=== PATIENT | male | born 1985 | race Caucasian/White ===

== ENCOUNTER → 2022-05-22 10:56 | Outpatient (CLI) | payer OTHER, SELFPAY ==
--- NOTE | ~2022-05-22 | XR_ITS ---
XR knee RT 3V DATE: 05/22/2022 12:01 INDICATION: Medial collateral ligament sprain TECHNIQUE: [place] and standing AP and lateral views COMPARISON: None FINDINGS: No fracture or dislocation or joint effusion. No periosteal reaction or bone destruction. N o radiopaque interarticular loose body or chondral calcinosis. Joint spaces are preserved. IMPRESSION: Negative Reviewed, dictated and finalized at location B. IMPRESSION: Negative
== END ==
PROVIDERS: PCP Family Medicine; Visit Provider Family Medicine
DX: S83.411A Sprain of medial collateral ligament of right knee, initial encounter (principal); X58.XXXA Exposure to other specified factors, initial encounter
CPT/HCPCS: 73562

== ENCOUNTER → 2022-06-29 07:04 | Outpatient (CLI) | payer OTHER, SELFPAY ==
--- NOTE | ~2022-06-29 | MR_ITS ---
EXAMINATION: MR knee RT wo con DATE: 06/29/2022 07:38 INDICATION: Right knee injury. TECHNIQUE: Magnetic resonance imaging (MRI) of the right knee was performed without intravenous contr ast. Sequences included axial PD-weighted FS FSE, coronal PD-weighted FSE and PD-weighted FS FSE, sag ittal PD-weighted FSE, and sagittal T2-weighted FS FSE. COMPARISON: Right knee radiographs 05/22/2022 FINDINGS: Medial compartment: Medial meniscus is normal. There is cartilage surface irregularity of tibial condyle. There is deep p artial thickness cartilage loss of femoral condyle involving the central articular surface. Lateral compartment: Lateral meniscus is normal. There is cartilage surface irregularity of tibial condyle and femoral con dyle. Patellofemoral compartment: There is deep partial thickness cartilage loss of patellar medial facet with minimal subchondral nicci a-like marrow signal intensity. Trochlear cartilage is normal. Ligaments and tendons: The anterior and posterior cruciate ligaments are normal. There is fluid tracking along medial collat eral ligament. Lateral collateral ligament complex are normal. There is mild patellar tendinopathy. Fluid: There is a small knee joint effusion. There is mild prepatellar bursitis. IMPRESSION: 1. Moderate chondrosis of medial and patellofemoral compartments and mild chondrosis of lateral marce rtment. 2. Small knee joint effusion. Reviewed, dictated and finalized at location A. IMPRESSION: 1. Moderate chondrosis of medial and patellofemoral compartments and mild chond rosis of lateral compartment. 2. Small knee joint effusion.
== END ==
PROVIDERS: PCP Family Medicine
DX: S89.91XA Unspecified injury of right lower leg, initial encounter (principal); X58.XXXA Exposure to other specified factors, initial encounter; M25.461 Effusion, right knee
CPT/HCPCS: 73721

== ENCOUNTER 2023-11-12 15:22 | Outpatient (CLI) | payer BC, SELFPAY ==
--- NOTE | ~2023-11-12 | XR_ITS ---
EXAMINATION: XR chest 2V DATE: 11/12/2023 15:33 INDICATION: Shortness of breath TECHNIQUE: PA and lateral views of the chest were obtained. COMPARISON: Chest radiograph dated 03/17/2017 FINDINGS: The lungs remain clear with no focal airspace opacities, pulmonary edema, pleural effusion or pneumot horax. The cardiomediastinal silhouette is normal. Mild to moderate thoracic spondylosis. IMPRESSION: 1. No acute cardiopulmonary disease. Reviewed, dictated and finalized at location B.
== END 2023-11-12 15:23 ==
LOC: MICIMG 15:24
PROVIDERS: PCP Family Medicine; Visit Provider Family Medicine
DX: R06.02 Shortness of breath (principal); R05.9 Cough, unspecified
CPT/HCPCS: 71046

== ENCOUNTER 2024-09-19 10:07 | Outpatient (CLI) | payer BC, SELFPAY ==
--- NOTE | ~2024-09-19 | XR_ITS ---
EXAMINATION: XR chest 2V 09/19/2024 10:33 INDICATION: Abnormal lung sounds PROCEDURE: 2 view chest COMPARISON: 11/12/2023 FINDINGS: The lungs are clear. The cardiomediastinal silhouette is within normal limits. There are no pleural effusions. There is no pneumothorax suspected. IMPRESSION: 1: NO ACUTE CARDIOPULMONARY DISEASE. Reviewed, dictated and finalized at location A. 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
== END 2024-09-19 10:08 | disposition home or self-care (01) ==
PROVIDERS: PCP Family Medicine; Visit Provider Pediatrics
DX: J10.1 Influenza due to other identified influenza virus with other respiratory manifestations (principal)
CPT/HCPCS: 71046

== ENCOUNTER 2024-11-24 11:01 | Outpatient (CLI) | payer BC, SELFPAY ==
--- NOTE | ~2024-11-24 | CT_ITS ---
EXAMINATION: CT facial bones w con DATE: 11/24/2024 12:16 INDICATION: Jaw pain. TECHNIQUE: Computed tomography (CT) of the facial bones and maxillofacial region was performed with 7 5 mL Omnipaque 350 intravenous contrast. Automated exposure control and iterative reconstruction tech [employer] were employed. The dose-length product was 604.43 mGy-cm. COMPARISON: None. FINDINGS: There are no pathologically enlarged lymph nodes. There is mild mucosal thickening in the p aranasal sinuses. There is a small left mastoid effusion. The parotid glands are normal. The temporom andibular joints are normal. There is a carious lesion of tooth 8. There is moderate cervical spondyl osis. IMPRESSION: 1. No specific etiology for the patient's symptoms. Reviewed, dictated and finalized at location A.
--- OUTSIDE RECORDS SUMMARY | 2024-11-24 12:06 | XMS_ITS | Encounter Summary ---
Author Name [facility] [place] [facility] [place] Address [address] [place] [address] Care Team Providers Care Telephone Clerks Supervisor Name Role Phone TASNEEM CARVAJAL Primary Care Provider UnavailALFREDO Grace Unavailable Unavailable Insurance Providers: All historical and current Section Date Range: From patient's date of to the date document was created. This section includes the names of all active insurance providers for the patient. Insurance Provider Type of Coverage Plan Name Start of Policy Coverage End of Policy Coverage Group Number Member ID Insurance Provider's Telephone Number Policy Martinez's Name Patient's Relationship to Policy Martinez [place] PREFERRED PROVIDER ORGANIZAT ION (PPO) [facility] Jan 28, 2023 [id number] [phone] CAMILA PEREZ PATIENT [place] PREFERRED PROVIDER ORGANIZAT ION (PPO) [facility] PAINT ERS Jan 28, 2023 [id number] [phone] CAMILA PEREZ PATIENT [place] PREFERRED PROVIDER ORGANIZAT ION (PPO) [facility] PAINT Jan 28, 2023 [id number] [phone] [place] CAMILA PATIENT [place] PREFERRED PROVIDER [place]IZ[place] Jan 28, 2023 [id number] [phone] CAMILA PEREZ PATIENT [employer]-ARGUS PRESCRIPT ION RX PLAN Jan 28, 2023 ISP [id number] [phone] CAMILA PEREZ PATIENT Selected Encounter This section includes the information on record at [place] for the Encounter. Date/Time Encounter Type Encounter Description Reason Pro vider Source Jul 21, 2024 03:30 PM Outpatient Encounter ADMIN PAT ACTIVTIES (MASNONCT) IHE Encounter Template Text not used by [place] Plan of Treatment: Future Appointments (+ 6 months) and Future Tests (+/- 45 days) The Plan of Treatment section includes future care activities for the patient from all [place] treatmentfacilities. This section includes future appointments and future orders which are active, pending or scheduled. Future Appointments This section includes appointments that were scheduled to occur 6 months from the date of the Encounter, up to a maximum of 20 appointments. The data comes from all [facility] facilities. Appointment Date/Time Appointment Type Appointme nt Facility Name Sep 15, 2024 03:30 PM AMBULATORY - PSYCHIATRY [facility] Sep 15, 2024 03:30 PM [facility]ULATORY - [facility]ATRY [facility] Oct 30, 2024 03:30 PM AMBULATORY - PS[facility]CHIATRY [facility] Oct 30, 2024 03:30 PM AMBULATORY - PSYCHIATRY [facility] December 29, 2024 01:30 PM AMBULATORY - PSYCHIATRY [facility] December 29, 2024 01:30 PM AMBULATORY - PS[facility]CHIATRY [facility] Active, Pending, and Scheduled Orders This section includes a listing of several types of active, pending, and scheduled orders, including clinic medications orders, diagnostic test orders, procedure orders and consult orders; where thestart date of the order is 45 days before the date of the Encounter or 45 days after the date of the Encounter. The data comes from all [facility]. Test Date/Time Test Type Test Details Facility Name Jul 21, 2024 12:00 AM Laboratory - Chemi stry Order URINE DRUG SCREEN (STL) URINE YELLOW SP [facility] Social History: Smoking Status (Most current) and Tobacco Use (All prior to encounter date) This section includes the most current, and the historical, smoking and tobacco- related health factors from the [place] facility where the Encounter took place. Current Smoking Status This section includes the most current smoking, or tobacco-related health factor, from the [place] facility where the Encounter took place. Date/Time Current Smoking Status Comment Martina guerrier Oct 21, 2018 09:17 AM VA-TOBACCO NEVER USED [facility] Tobacco Use History This section includes a history of the smoking, or tobacco-related health factors, that were collected on or before the date of the Encounter. The data comes from the [place] facility where the Encounter took place. Date/Time Smoking Status/Tobacco Use Comment F acility Mar 19, 2017 09:05 AM QUIT TOBACCO >12 M O & <7 YRS AGO [facility] Mar 19, 2017 09:05 AM TOBACCO MEDS OFFER ED BUT DECLINED [facility] January 21, 2017 01:03 PM LIFETIME NON-USER OF TOBACCO [facility] Feb 14, 2015 01:58 PM QUIT TOBACCO >12 M O & <7 YRS AGO [facility] Feb 04, 2015 07:19 PM QUIT TOBACCO >12 M O & <7 YRS AGO [facility] Apr 02, 2014 03:20 PM QUIT TOBACCO >12 M O & <7 YRS AGO [facility] Dec 22, 2012 02:58 PM QUIT TOBACCO >12 M O & <7 YRS AGO [facility] Dec 22, 2012 02:58 PM QUIT TOBACCO IN TH E LAST 12 MONTHS [facility] Advance Directives: All historical and current Section Date Range: From patient's date of to the date document was created. This section includes ALL of a patient's completed or amended [place] Advance and Rescinded Directives. The entries below indicate that a directive exists for the patient, but an actual copy is not included with this document. The data comes from all [facility]. Date Advance Directives Provider Source Apr 03, 2014 ADVANCE DIRECTIVE DISCUSSION NATALIA CASTELAN [facility] Encounter Notes: All associated encounter notes This section contains the clinical notes associated to the Encounter. Date/Time Encounter Note(s) Provider Source Jul 21, 2024 03:00 PM ACCOUNTING OF DISC LOSURES NOTE: LOCAL TITLE: STATE PRESCRIPTION DRUG MONITORING PROGRAM STANDARD TITLE: ACCOUNTING OF DISCLOSURES NOTE DATE OF NOTE: JUL 21, 2024@15:00:13 ENTRY DATE: JUL 21, 2024@15:00:13 AUTHOR: GARTH LYONS EXP COSIGNER: URGENCY: STATUS: COMPLETED This PDMP query was submitted by Garth Lyons. The clinical justification for this PDMP query is to review controlled substances prescribed outside of the [facility], and any additional information that may become available, as an important component of standard clinical care, and in accordance with [facility] policy. Patient information was shared with the PDMP Appriss Owen. No prescription(s) for controlled substances outside the [facility] were found in the last 90 days. /buck/ GARTH LYONS Psychiatrist V15 Signed: 07/21/2024 15:00 GARTH LYONS [facility] Jul 21, 2024 02:58 PM PSYCHIATRY NOTE: LOCAL TITLE: PSYCHIATRY STL STANDARD TITLE: PSYCHIATRY NOTE DATE OF NOTE: JUL 21, 2024@14:58 ENTRY DATE: JUL 21, 2024@14:59:01 AUTHOR: GARTH LYONS EXP COSIGNER: URGENCY: STATUS: COMPLETED Encounter was conducted via Telehealth Modality with patient located at work via [facility]. Verbal informed consent was obtained from the at the time of the encounter. Video room locked at time of appointment. Two patient identifiers were utilized for patient identification. Giselle Red. address: [address] [place] [address] phone: Primary NOK: JHONATAN RICE Relation: UNRELATED FRIEND/ [address] [place] [address] [place] [address] Secondary NOK: WERNER PEREZ Relation: FATHER [address] [place], [place] [address] Length of services provided: 20 minutes (10 video, 10 chart review and documentation) Chief complaint: f/u MH med management with diagnoses CHRISTOPHER with panic attacks Bipolar II Disorder Subjective- Today, the patient reports: At last appointment continued buspirone 30mg BID for anxiety, lamotrigine 400mg QHS for mood, fluoxetine increased to 60mg QAM for mood. He never completed UDS so have not renewed lorazepam 0.25mg TID prn for severe anxiety. Discussed potential of adding Abilify, Trileptal, Depakote, he is hesitant about new medications. Reports doing alright. Continuing to deal with work stress. His was present and feels there has been some improvement. No SEs, reports being tired in general but does not attribute to medication. Has gone on a couple hunting trips, another planned next month. Would like to monitor with current and f/u beginning of next year. REVIEW OF SYSTEMS (ROS): Sleep: intact Energy level: could be better attributes to getting older, no change Appetite: no concerns SI and HI: denied AVH, paranoia, delusions: denied Hypomania or harper: asks about hypomania in the past really just more impulsive, hard to keep things under wraps. Pain: knee, back, neck, shoulder worse lately, has been seeing chiropractor. ========= History from initial encounter with this provider for reference: Firearms Access: yes, locked Nutrition: no unexpected weight changes/other nutritional concerns Psychiatric History: Past medical interventions: alprazolam, MH hospitalizations: denied Substance Related Treatment: denied Suicide attempts or SIB: denied Family Psychiatric History: denied other than father and GF being angry people Social History: Raised by: parents splitting time between locations History of abuse (sexual, verbal, physical, neglect): denied Legal: lawsuit with past employer for wrongful termination Highest level of education or training: some college 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 ====== ALLERGIES: FERROUS SULFATE MEDICATIONS RECONCILED: Active and Recently Outpatient Medications (excluding Supplies): Active Outpatient Medications Status 1) BUSPIRONE HCL 15MG TAB TAKE TWO TABLETS BY MOUTH ACTIVE TWICE A DAY FOR ANXIETY. DO NOT TAKE WITH GRAPEFRUIT JUICE. 2) FLUOXETINE HCL 20MG CAP TAKE THREE CAPSULES BY MOUTH ACTIVE EVERY MORNING MOOD AND ANXIETY FOR MOOD 3) LAMOTRIGINE 200MG TAB TAKE TWO TABLETS BY MOUTH EVERY ACTIVE DAY FOR MOOD OR SEIZURES MEDICAL HISTORY: 1) Gastroesophageal Reflux Disease (SNOMED CT 987228203) 2) Obstructive sleep apnea syndrome (SNOMED CT 23933087) 3) History of Fall 4) Meckel diverticulum 5) CHRISTOPHER - Generalised anxiety disorder 6) Plantar fasciitis 7) Panic 8) Bipolar II disorder LABS: CBC: CBC EO - NONE FOUND CMP: No data available for: CREATININE UREA NITROGEN GLUCOSE SODIUM POTASSIUM CHLORIDE CARBON DIOXIDE CALCIUM PROTEIN ALBUMIN TOTAL BILIRUBIN ALKALINE PHOSPHATASE AST/SGOT ALT/SGPT EGFR (CKD-EPI 2020) VITAMIN D (25-HYDROXY) TESTOSTERONE, TOTAL HGA1C B12 TSH A1C: HGB A1C No data available Lipid panel: No LIPID PANEL EO data found TSH: No TSH (2YR) EO data found [place]: ____ Depakote: ____ Carbamazepine: No CARBAMAZEPINE EO data found UDS: No METHADONE PANEL EO data found No URINE DRUG SCREEN EO data found Vitamin D: No VITAMIN D EO data found Folate: No FOLATE (STL-MA);FOLATE (PB);FOLATE (DC 06-06);FOLATE (DC 06/06) data found B12: No B12 EO data found Vitals: VSD - Detailed Vitals No data available Mental Status Exam: Orientation: A+O to person, date and situation grossly General appearance: Well groomed, good eye contact via video, miller, hat Mood: pretty good Affect: slightly restricted but appropriately reactive, euthymic today Gait: patient was seated Memory: sufficient to report recent events Attention/concentration: sufficient for conversation Muscle tone/strength: sufficient to sit independently Speech: fluent, normal rate, tone Thought process: goal directed conversation Fund of Knowledge: Appropriate/good Associations: coherent Thought content: Denies SI, HI and AVH. Judgment and insight: Both fair Therapy: <16min supportive and psychoeducation Assessment: CHRISTOPHER with panic attacks Bipolar II Disorder Per DSM 5 Suicide Risk assessment: Acute risk is estimated as low as is chronic risk. Homicidal behavior risk is also estimated as low. Risk factors: sex race access to firearms, locked Protective factors: No prior suicide attempts denies active SI, intent plan connection to family and friends demonstrated willingness to seek help no active LESLIE awareness of legal consequence of violence to others & wishes to avoid this Plan: --Treatment Plan: -Problem: anxiety, bipolar II -Goal: I'm real stable, just need to keep getting my refills -Objective: Improvements based on clinical evaluation and patient reporting -Intervention: Medication management, supportive and other therapies as indicated -Timeframe: Will monitor and modify as needed every 12 months -Progress: mild improvement with recent change, monitor and continue to discuss options in f/u --Medications: Continue: Buspirone 30mg BID for anxiety. Denies SEs. Lamotrigine 400mg QHS for mood. Denies SEs. Fluoxetine 60mg QAM for mood. Denies SEs. Once UDs returns order lorazepam 0.25mg TID prn for severe anxiety for mail out. He is aware of risks of chronic use and to not take with alcohol, also sedation risks. He is aware cannot be filled until UDS results return. Discussed potential of adding ability, Trileptal, Depakote, he is hesitant about new medications. The patient indicated an informed decision to take medications as described above. The was informed that if any new side effects or problems arise, the Clinic should be contacted, or can come in for re-evaluation of medication. --Therapy: supportive in sessions --labs/rads/consults: UDS re-ordered --Return to clinic: scheduled for 6w, sooner prn The agrees to contact the clinic sooner for any new or worsening symptoms. --Discussed plan as written above with who verbalized understanding and agreement with plan. Detailed safety plan was discussed with the patient. - would ask for help if needed -All ways to access care discussed with patient including how and when to call the mental health clinic, 24 hour emergency room services, [facility] (280 and press 1 or Text [phone]) and 911. Patient voiced understanding and agreed to utilize these services when needed. /buck/ GARTH LYONS Psychiatrist V15 Signed: 07/21/2024 15:42 GARTH LYONS [facility]
--- OUTSIDE RECORDS SUMMARY | 2024-11-24 12:06 | XMS_ITS | Encounter Summary ---
Author Name [facility] [place] [facility] [place] Address [address] [facility] [place] [address] Care Team Providers Care Adult Parole Officer Name Role Phone TASNEEM CARVAJAL Primary Care Provider Unavailabl e ALFREDO SANTOS Unavailable Unavailable Insurance Providers: All historical and [...] [place] PREFERRED PROVIDER ORGANIZAT ION (PPO) [facility] ERS Jan 28, 2023 [id number] [phone] CAMILA PEREZ PATIENT ANTHE[place] PREFERRED PROVIDER ORGANIZAT ION (PPO) [facility] ERS Jan 28, 2023 [id number] [phone] CAMILA PEREZ PATIENT [place] PREFERRED PROVIDER ORGANIZAT ION (PPO) [facility] Jan 28, 2023 [id number] [phone] [place] PATIENT [place] PREFERRED PROVID[place] Jan 28, 2023 [id number] [phone] CAMILA PEREZ PATIENT [employer] PRESCRIPT ION RX PLAN Jan 28, 2023 ISP [id number] [phone] CAMILA PEREZ PATIENT Selected Encounter This section includes the information on record at [place] for the Encounter. Date/Time Encounter Type Encounter Description Reason Provider Source Sep 15, 2024 03:30 PM SYNCH AUDIO-VIDEO EST MOD 30 [facility] - IND ICD-10-CM F31.81 Bipolar II disorder NILDA LYONS [place] Encounter Template Text not used by [place] Assessments - Encounter Diagnoses This section includes the primary and secondary diagnoses documented for the Encounter. Date/Time Primary/Secondary Diagnosis Diagnosis Name Provider Source Sep 15, 2024 03:45 PM PRIMARY Bipolar II disorder NILDA LYONS [facility] Sep 15, 2024 03:45 PM SECONDARY [facility]ized anxiety [facility] Sep 15, 2024 03:45 PM SECONDARY Panic disorder [episodic paroxysmal anxiety] [facility] Plan of Treatment: Future Appointments (+ 6 months) and Future Tests (+/- 45 days) The Plan of Treatment section includes future care activities for the patient from all [place] treatmentfacilities. This section includes future appointments and future orders which are active, pending or scheduled. Future Appointments This section includes appointments that were scheduled to occur 6 months from the date of the Encounter, up to a maximum of 20 appointments. The data comes from all [place] treatment facilities. Appointment Date/Time Appointment Type Appointme nt Facility Name Oct 30, 2024 03:30 PM AMBULATORY - PSYCHIATRY [facility] Oct 30, 2024 03:30 PM AMBULATORY - PS[facility]ATRY [facility] December 29, 2024 01:30 PM AMBULATORY - PS[facility]CHIATRY [facility] December 29, 2024 01:30 PM AMBULATORY - [facility]RY [facility] Advance Directives: All historical and current Section Date Range: From patient's date of to the date document was created. This section includes ALL of a patient's completed or amended [place] Advance and Rescinded Directives. The entries below indicate that a directive exists for the patient, but an actual copy is not included with this document. The data comes from all [place] facilities. Date Advance Directives Provider Source Apr 03, 2014 ADVANCE DIRECTIVE DISCUSSION NATALIA CASTELAN [facility] Encounter Notes: All associated encounter notes This section contains the clinical notes associated to the Encounter. Date/Time Encounter Note(s) Provider Source Sep 15, 2024 02:45 PM MENTAL HEALTH PHYS ICIAN NOTE: LOCAL TITLE: EK-PHYSICIAN MH STANDARD TITLE: MENTAL HEALTH PHYSICIAN NOTE DATE OF NOTE: SEP 15, 2024@14:45 ENTRY DATE: SEP 15, 2024@14:46:24 AUTHOR: NILDA LYONS EXP COSIGNER: URGENCY: STATUS: COMPLETED A telehealth encounter was conducted with CAMILA PEREZ SHAUN ROBERT at [facility] on Aug. Please see [employer] [facility] for progress note, clinical reminders and patient orders. /buck/ NILDA LYONS MD PSYCHIATRIST Signed: 09/15/2024 15:46 NILDA LYONS [facility]
--- OUTSIDE RECORDS SUMMARY | 2024-11-24 12:06 | XMS_ITS | Encounter Summary ---
Author Name [facility] [place] [facility] [place] Address [address] [place] [address] Care Team Providers Care Sidehand Name Role Phone TASNEEM CARVAJAL Primary Care [...] [place] PREFERRED PROVIDER ORGANIZAT [place]ON (PPO) [facility] Jan 28, 2023 [id number] [phone] CAMILA PEREZ PATIENT ANTHEM BC[place] PREFERRED PROVIDER ORGANIZAT ION (PPO) [facility] E[facility] Jan 28, 2023 [id number] [phone] CAMILA PEREZ PATIENT ANTHEM [place] PREFERRED PROVIDER ORGANIZAT ION (PPO) [facility]LL[place] OIS [facility] Jan 28, 2023 [id number] [phone] [place] CAMILA PATIENT [place] PREFERRED PROVIDER [place]GANIZ[place] Jan 28, 2023 [id number] CAMILA PEREZ PATIENT [facility] PRESCRIPT ION RX PLAN Jan 28, 2023 ISP [id number] [phone] CAMILA PEREZ PATIENT Selected Encounter This section includes the information on record at [place] for the Encounter. Date/Time Encounter Type Encounter Description Reason Pro vider Source Sep 15, 2024 03:30 PM Outpatient Encounter ADMIN PAT ACTIVTIES (MASNONCT) I[facility] Encounter Template Text not used by [place] Plan of Treatment: Future Appointments (+ 6 months) and Future Tests (+/- 45 days) The Plan of Treatment section includes future care activities for the patient from all [place] treatmentfacilities. This section includes future appointments and future orders which are active, pending or scheduled. Future Appointments This section includes appointments that were scheduled to occur 6 months from the date of the Encounter, up to a maximum of 20 appointments. The data comes from all [place] treatment facilities. Appointment Date/Time Appointment Type Appointme nt Facility Name Oct 30, 2024 03:30 PM AMBULATORY - PSYCHIATRY [facility] Oct 30, 2024 03:30 PM AMBULATORY - [facility]IATRY [facility] December 29, 2024 01:30 PM AMBULATORY - PSYCHIATRY [facility] December 29, 2024 01:30 PM AMBULATORY - PSYCHIATRY [facility] Social History: Smoking Status (Most current) and Tobacco Use (All prior to encounter date) This section includes the most current, and the historical, smoking and tobacco- related health factors from the [place] facility where the Encounter took place. Current Smoking Status This section includes the most current smoking, or tobacco-related health factor, from the [place] facility where the Encounter took place. Date/Time Current Smoking Status Comment Martina guerrier Oct 21, 2018 09:17 AM [place]-TOBACCO NEVER USED [facility] Tobacco Use History This section includes a history of the smoking, or tobacco-related health factors, that were collected on or before the date of the Encounter. The data comes from the [place] facility where the Encounter took place. Date/Time Smoking Status/Tobacco Use Comment F acility Mar 19, 2017 09:05 AM QUIT TOBACCO >12 M O & <7 YRS AGO [facility] Mar 19, 2017 09:05 AM TOBACCO MEDS OFFER ED BUT DECLINED [facility] January 21, 2017 01:03 PM LIFETIME NON-USER OF TOBACCO [facility] Feb 14, 2015 01:58 PM QUIT TOBACCO >12 M O & <7 YRS AGO [facility] Feb 04, 2015 07:19 PM QUIT TOBACCO >12 M O & <7 YRS AGO [facility] Apr 02, 2014 03:20 PM QUIT TOBACCO >12 M O & <7 YRS AGO [facility] Dec 22, 2012 02:58 PM QUIT TOBACCO >12 M O & <7 YRS AGO [facility] Dec 22, 2012 02:58 PM QUIT TOBACCO IN TH E LAST 12 MONTHS [facility] Advance Directives: All historical and current Section Date Range: From patient's date of to the date document was created. This section includes ALL of a patient's completed or amended VA Advance and Rescinded Directives. The entries below indicate that a directive exists for the patient, but an actual copy is not included with this document. The data comes from all [place] facilities. Date Advance Directives Provider Source Apr 03, 2014 ADVANCE DIRECTIVE DISCUSSION NATALIA CASTELAN [facility] Encounter Notes: All associated encounter notes This section contains the clinical notes associated to the Encounter. Date/Time Encounter Note(s) Provider Source Sep 15, 2024 03:10 PM ACCOUNTING OF DISC LOSURES NOTE: LOCAL TITLE: STATE PRESCRIPTION DRUG MONITORING PROGRAM STANDARD TITLE: ACCOUNTING OF DISCLOSURES NOTE DATE OF NOTE: SEP 15, 2024@15:10:15 ENTRY DATE: SEP 15, 2024@15:10:15 AUTHOR: GARTH LYONS EXP COSIGNER: URGENCY: STATUS: COMPLETED This PDMP query was submitted by Garth Lyons. The clinical justification for this PDMP query is to review controlled substances prescribed outside of the [place], and any additional information that may become available, as an important component of standard clinical care, and in accordance with [facility] policy. Patient information was shared with the PDMP Appriss [place]. No prescription(s) for controlled substances outside the [facility] were found in the last 90 days. /es/ GARTH LYONS Psychiatrist V15 Signed: 09/15/2024 15:10 GARTH LYONS [facility] Sep 15, 2024 03:10 PM PSYCHIATRY NOTE: LOCAL TITLE: PSYCHIATRY [facility] STANDARD TITLE: PSYCHIATRY NOTE DATE OF NOTE: SEP 15, 2024@15:10 ENTRY DATE: SEP 15, 2024@15:10:36 AUTHOR: GARTH LYONS EXP COSIGNER: URGENCY: STATUS: COMPLETED Encounter was conducted via Telehealth Modality with patient located at work via [facility]. Verbal informed consent was obtained from the [place] at the time of the encounter. Video room locked at time of appointment. Two patient identifiers were utilized for patient identification. Prefers Camila. address: [address] [place] [address] phone: Primary NOK: JHONATAN RICE Relation: UNRELATED FRIEND/ [address] [place] [address] [place] [address] Secondary NOK: WERNER PEREZ Relation: FATHER [address] [place], [place] [address] Length of services provided: 20 minutes (10 video, 10 chart review and documentation) Chief complaint: f/u MH med management with diagnoses CHRISTOPHER with panic attacks Bipolar II Disorder Subjective- Today, the patient reports: At last appointment continued buspirone 30mg BID for anxiety, lamotrigine 400mg QHS for mood, fluoxetine 60mg QAM for mood. He never completed UDS so have not renewed lorazepam 0.25mg TID prn for severe anxiety. Discussed potential of adding Abilify, Trileptal, Depakote, he is hesitant about new medications. Reports doing alright. Had some bad patches but went hunting last weekend that helped me a little bit. Continuing to deal with anger issues/irritability. Did get a raise recently, some continued work stressors. Hoping lawsuit from past will be resolved in next few months. After discussion he would like to try low dose of aripiprazole which we had discussed previously. 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 ====== ALLERGIES: FERROUS SULFATE MEDICATIONS RECONCILED: Active and Recently Outpatient Medications (excluding Supplies): Active Outpatient Medications Status = 1) BUSPIRONE HCL 15MG TAB TAKE TWO TABLETS BY MOUTH TWICE A DAY ACTIVE FOR ANXIETY. DO NOT TAKE WITH GRAPEFRUIT JUICE. 2) FLUOXETINE HCL 20MG CAP TAKE THREE CAPSULES BY MOUTH EVERY ACTIVE MORNING FOR MOOD Indication: MOOD AND ANXIETY 3) LAMOTRIGINE 200MG TAB TAKE TWO TABLETS BY MOUTH EVERY DAY ACTIVE FOR MOOD OR SEIZURES MEDICAL HISTORY: 1) Gastroesophageal Reflux Disease (SNOMED CT 219101493) 2) Obstructive sleep apnea syndrome (SNOMED CT 73299786) 3) History of Fall 4) Meckel diverticulum 5) CHRISTOPHER - Generalised anxiety disorder 6) Plantar fasciitis 7) Panic 8) Bipolar II disorder LABS: CBC: CBC EO - NONE FOUND CMP: No data available for: CREATININE UREA NITROGEN GLUCOSE SODIUM POTASSIUM CHLORIDE CARBON DIOXIDE CALCIUM PROTEIN ALBUMIN TOTAL BILIRUBIN ALKALINE PHOSPHATASE AST/SGOT ALT/SGPT EGFR (CKD-EPI 2020) VITAMIN D (25-HYDROXY) DO NOT USE TESTOSTERONE, TOTAL HGA1C B12 TSH A1C: HGB A1C No data available Lipid panel: No LIPID PANEL EO data found TSH: No TSH (2YR) EO data found [place]: ____ Depakote: ____ Carbamazepine: No CARBAMAZEPINE EO [...] groomed, good eye contact via video, miller, work attire Mood: getting by Affect: slightly restricted but appropriately reactive, a bit dysphoric today Gait: patient was seated Memory: sufficient [...] cannot be filled until UDS results return. Start: Aripiprazole 2.5mg daily for 7 days then if not seeing any benefit or SEs increase to 5mg daily for mood, irritability. Reviewed potential SEs in detail including abnormal movements, dystonia, metabolic changes etc. The patient indicated an informed decision to take medications as described above. The [place] was informed that if any new side effects or problems arise, the Clinic should be contacted, or can come in for re-evaluation of medication. --Therapy: supportive in sessions --labs/rads/consults: no new today --Return to clinic: scheduled for 6w, sooner prn The agrees to contact the clinic sooner for any new or worsening symptoms. --Discussed plan as written above with [place] who verbalized understanding and agreement with plan. Detailed safety plan was discussed with the patient. -[place] would ask for help if needed -All ways to access care discussed with patient including how and when to call the mental health clinic, 24 hour emergency room services, [facility] Crisis [facility] (680 and press 1 or Text [phone]) and 911. Patient voiced understanding and agreed to utilize these services when needed. /buck/ GARTH LYONS Psychiatrist V15 Signed: 09/15/2024 15:51 GARTH LYONS [facility]
--- OUTSIDE RECORDS SUMMARY | 2024-11-24 12:06 | XMS_ITS | Encounter Summary ---
Author Name [facility] [place] [facility] [place] Address [address] [place] [address] Care Team Providers Care Biscuit Machine Operator Name Role Phone TASNEEM CARVAJAL Primary Care [...] [place] PREFERRED PROVIDER ORGANIZAT ION (PPO) [facility] Jan 28, 2023 [id number] [phone] CAMILA PEREZ PATIENT ANTHEM [place] PREFERRED PROVIDER ORGANIZAT ION (PPO) [facility] ERS Jan 28, 2023 [id number] [phone] CAMILA PEREZ PATIENT ANTHEM [place] PREFERRED PROVIDER ORGANIZAT ION (PPO) [facility] OIS [facility] Jan 28, 2023 [id number] [phone] [place] CAMILA PATIENT [place] PREFERRED PROVID[place] Jan 28, 2023 [id number] [phone] CAMILA PEREZ PATIENT [facility] PRESCRIPT ION RX PLAN Jan 28, 2023 ISP [id number] [phone] CAMILA PEREZ PATIENT Selected Encounter This section includes the information on record at [place] for the Encounter. Date/Time Encounter Type Encounter Description Reason Provider Source Mar 31, 2024 10:00 AM Outpatient Encounter ADMIN PAT ACTIVTIES (MASNONCT) GARTH LYONS Encounter Template Text not used by [place] Plan of Treatment: Future Appointments (+ 6 months) and Future Tests (+/- 45 days) The Plan of Treatment section includes future care activities for the patient from all [place] treatmentfacilities. This section includes future appointments and future orders which are active, pending or scheduled. Future Appointments This section includes appointments that were scheduled to occur 6 months from the date of the Encounter, up to a maximum of 20 appointments. The data comes from all [place] treatment facilities. Appointment Date/Time Appointment Type Appointme nt Facility Name Jun 19, 2024 09:30 AM AMBULATORY - PSYCHIATRY [facility] Jun 19, 2024 09:30 AM AMBULATORY - PS[facility]IATRY [facility] Jul 21, 2024 03:30 PM AMBULATORY - PSYCHIATRY [facility] Jul 21, 2024 03:30 PM AMBULATORY - PSYCHIATRY [facility] Sep 15, 2024 03:30 PM AMBULATORY - PSYCHIATRY [facility] Sep 15, 2024 03:30 PM AMBULATORY - PSYCHIATRY [facility] Social History: Smoking Status (Most current) and Tobacco Use (All prior to encounter date) This section includes the most current, and the historical, smoking and tobacco- related health factors from the [place] facility where the Encounter took place. Current Smoking Status This section includes the most current smoking, or tobacco-related health factor, from the [place] facility where the Encounter took place. Date/Time Current Smoking Status Bandar guerrier Oct 21, 2018 09:17 AM [place]-TOBACCO NEVER USED [facility] Tobacco Use History This section includes a history of the smoking, or tobacco-related health factors, that were collected on or before the date of the Encounter. The data comes from the [place] facility where the Encounter took place. Date/Time Smoking Status/Tobacco Use Comment F acility Mar 19, 2017 09:05 AM QUIT TOBACCO >12 M O & <7 YRS AGO [facility] Mar 19, 2017 09:05 AM TOBACCO MEDS OFFER ED BUT DECLINED [facility] January 21, 2017 01:03 PM LIFETIME NON-USER OF TOBACCO [facility] Feb 14, 2015 01:58 PM QUIT TOBACCO >12 M O & <7 YRS AGO [facility] Feb 04, 2015 07:19 PM QUIT TOBACCO >12 M O & <7 YRS AGO [facility] Apr 02, 2014 03:20 PM QUIT TOBACCO >12 M O & <7 YRS AGO [facility] Dec 22, 2012 02:58 PM QUIT TOBACCO >12 M O & <7 YRS AGO [facility] Dec 22, 2012 02:58 PM QUIT TOBACCO IN TH E LAST 12 MONTHS [facility] Advance Directives: All historical and current Section Date Range: From patient's date of to the date document was created. This section includes ALL of a patient's completed or amended [place] Advance and Rescinded Directives. The entries below indicate that a directive exists for the patient, but an actual copy is not included with this document. The data comes from all [place] facilities. Date Advance Directives Provider Source Apr 03, 2014 ADVANCE DIRECTIVE DISCUSSION NATALIA CASTELAN [facility] Encounter Notes: All associated encounter notes This section contains the clinical notes associated to the Encounter. Date/Time Encounter Note(s) Provider Source Mar 31, 2024 09:51 AM PSYCHIATRY NOTE: LOCAL TITLE: PSYCHIATRY [facility] STANDARD TITLE: PSYCHIATRY NOTE DATE OF NOTE: MAR 31, 2024@09:51 ENTRY DATE: MAR 31, 2024@09:52:06 AUTHOR: GARTH LYONS COSIGNER: URGENCY: STATUS: COMPLETED Encounter was conducted via Telehealth Modality with patient located at work via [facility]. Verbal informed consent was obtained from the [place] at the time of the encounter. Video room locked at time of appointment. Two patient identifiers were utilized for patient identification. Giselle Red. address: [address] [place] [phone] phone: Primary NOK: JHONATAN RICE Relation: UNRELATED FRIEND/ [address] [facility] [id number] Secondary NOK: WERNER PEREZ Relation: FATHER [address] [place], [place] [address] Length of services provided: 60 minutes (30 video, 30 chart review and documentation) Chief complaint: transfer from prior Psychiatrist History of present illness: Last saw Psychiatry AUG 2023. Diagnoses listed were CHRISTOPHER, Bipolar II, Panic. Plan was to continue buspirone 30mg BID for anxiety, fluoxetine 40mg QAM for mood, lamotrigine 400mg daily, lorazepam 0.25mg TID prn for anxiety. Subjective- Today, the patient reports: Confirms medications and feels he is doing good . No concerns for any SEs and feels stable on them. Takes the lorazepam as needed for high stress situations such as around groups of people I get on edge and hyper-aware, really anxious. Denies taking more than prescribed. Enjoys hunting and sports. Does not want to change anything with treatment I'm pretty easy, just get my refills. He agrees to reach out if dealing with any concerns he would like to address. REVIEW OF SYSTEMS (ROS): Sleep: intact Energy level: could be better attributes to getting older Appetite: no concerns SI and HI: denied Firearms Access: yes, locked AVH, paranoia, delusions: denied Hypomania or harper: asks about hypomania in the past really just more impulsive, hard to keep things under wraps. 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 DO NOT TAKE WITH GRAPEFRUIT JUICE. 2) FLUOXETINE HCL 20MG CAP TAKE TWO CAPSULES BY MOUTH ACTIVE EVERY MORNING FOR MOOD 3) LAMOTRIGINE 200MG TAB TAKE TWO TABLETS BY MOUTH EVERY ACTIVE DAY FOR MOOD OR SEIZURES MEDICAL HISTORY: 1) Gastroesophageal Reflux Disease (SNOMED CT [id number]) 2) Obstructive sleep apnea syndrome (SNOMED CT 65168894) 3) History of Fall 4) Meckel diverticulum 5) CHRISTOPHER - Generalised anxiety disorder 6) Plantar fasciitis LABS: CBC EO - NONE FOUND No data available for: CREATININE UREA NITROGEN GLUCOSE SODIUM POTASSIUM CHLORIDE CARBON DIOXIDE CALCIUM PROTEIN ALBUMIN TOTAL BILIRUBIN ALKALINE PHOSPHATASE AST/SGOT ALT/SGPT EGFR (CKD-EPI 2020) VITAMIN D (25-HYDROXY) TESTOSTERONE, TOTAL HGA1C B12 TSH HGB A1C No data available No recent lipid panel No TSH (2YR) EO data found No METHADONE PANEL EO data found Collection DT Specimen Test Name Result Units Ref Range 12/07/2014 14:15 URINE CREATuF 230.44 H mg/dL 63 - 166 Vitals: Measurement DT TEMP PULSE RESP BP HT WT F(C) IN(CM) LB(KG)[BMI] ---- ----- ---- -- ------ 10/27/2018 13:22 98.4(36.9) 97 18 135/85 72.0(183) 283(128.4)[38*] 09/15/2018 15:28 260(117.9)[35*] Mental Status Exam: Orientation: A+O to person, date and situation grossly General appearance: Well groomed, good eye contact via video, miller Mood: pretty good Affect: slightly restricted but appropriately reactive, euthymic, Gait: patient was seated Memory: sufficient to [...] modify as needed every 12 months -Progress: Established today --Medications: Continue: Buspirone 30mg BID for anxiety. Denies SEs. Lamotrigine 400mg QHS for mood. Denies SEs. Fluoxetine 40mg QAM for mood. Denies SEs. Once UDs returns order lorazepam 0.25mg TID prn for severe anxiety for mail out. He is aware of risks of chronic use and to not take with alcohol, also sedation risks. He is aware cannot be filled until UDS results return. The patient indicated an informed decision to take medications as described above. The [place] was informed that if any new side effects or problems arise, the Clinic should be contacted, or can come in for re-evaluation of medication. --Therapy: supportive in sessions --labs/rads/consults: UDS ordered --Return to clinic: scheduled for 3m, sooner prn The agrees to contact the clinic sooner for any new or worsening symptoms. --Discussed plan as written above with [place] who verbalized understanding and agreement with plan. Detailed safety plan was discussed with the patient. - would ask for help if needed -All ways to access care discussed with patient including how and when to call the mental health clinic, 24 hour emergency room services, [facility] Crisis Line (034 and press 1 or Text [phone]) and 911. Patient voiced understanding and agreed to utilize these services when needed. Clinical Reminders: Suicide Screen: C-SSRS Screening [place]-Suicide Severity Rating Scale (C-SSRS Screener) 1. Over the past month, have you wished you were or wished you could go to sleep and not wake up? No 2. Over the past month, have you had any actual thoughts of killing yourself? No 3. Over the past month, have you been thinking about how you might do this? Response not required due to responses to other questions. 4. Over the past month, have you had these thoughts and had some intention of acting on them? Response not required due to responses to other questions. 5. Over the past month, have you started to work out or worked out the details of how to kill yourself? Response not required due to responses to other questions. 6. If yes, at any time in the past month did you intend to carry out this plan? Response not required due to responses to other questions. 7. In your lifetime, have you ever done anything, started to do anything, or prepared to do anything to end your life (for example, collected pills, obtained a gun, gave away valuables, went to the roof but didn't jump)? No 8. If YES, was this within the past 3 months? Response not required due to responses to other questions. Alcohol Use Screen (AUDIT-C): Alcohol Screen: SCREEN FOR ALCOHOL (AUDIT-C) An alcohol screening test (AUDIT-C) was negative (score=1). 1. How often did you have a drink containing alcohol in the past year? Consider a drink to be a 12 ounce can or bottle of regular beer, 8 ounces of malt liquor, a 5 ounce glass of table wine, or a 1.5 ounce shot of liquor (like scotch, gin, or vodka). Monthly or less 2. How many drinks containing alcohol did you have on a typical day when you were drinking in the past year? One or two drinks 3. How often did you have six or more drinks on one occasion in the past year? Never /buck/ GARTH LYONS Psychiatrist V15 Signed: 03/31/2024 10:19 GARTH LYONS [facility] Mar 31, 2024 09:01 AM ACCOUNTING OF DISC LOSURES NOTE: LOCAL TITLE: STATE PRESCRIPTION DRUG MONITORING PROGRAM STANDARD TITLE: ACCOUNTING OF DISCLOSURES NOTE DATE OF NOTE: MAR 31, 2024@09:01:17 ENTRY DATE: MAR 31, 2024@09:01:17 AUTHOR: GARTH LYONS EXP COSIGNER: URGENCY: STATUS: COMPLETED This PDMP query was submitted by Garth Lyons. The clinical justification for this PDMP query is to review controlled substances prescribed outside of the [place], and any additional information that may become available, as an important component of standard clinical care, and in accordance with [facility] policy. Patient information was shared with the PDMP Appriss [place]. No prescription(s) for controlled substances outside the [facility] were found in the last 90 days. /buck/ GARTH LYONS Psychiatrist V15 Signed: 03/31/2024 09:01 GARTH LYONS [facility]
--- OUTSIDE RECORDS SUMMARY | 2024-11-24 12:06 | XMS_ITS | Encounter Summary ---
Author Name [place] Address [address] [facility] [place] [address] Care Team Providers Care Rigger Name Role Phone TASNEEM CARVAJAL Primary Care [...] [place]BS [place] PREFERRED PROVIDER ORGANIZAT ION (PPO) [facility] Jan 28, 2023 [id number] [phone] CAMILA PEREZ PATIENT ANTHEM BCBS [place] PREFERRED PROVIDER ORGANIZAT ION (PPO) [facility] ERS Jan 28, 2023 [id number] [phone] CAMILA PEREZ PATIENT ANTHEM [place] PREFERRED PROVIDER ORGANIZAT ION (PPO) ILLIN OIS [facility] PAINT Jan 28, 2023 [id number] [phone] NELSONMAYTE NIXONUN PATIENT [place] PREFERRED PROVID[place] ORGANIZ[place] Jan 28, 2023 [id number] [phone] CAMILA PEREZ PATIENT [facility] RX-ARGUS PRESCRIPT ION RX PLAN Jan 28, 2023 ISP [id number] [phone] CAMILA PEREZ PATIENT Selected Encounter This section includes the information on record at [place] for the Encounter. Date/Time Encounter Type Encounter Description Reason Provider Source Jul 21, 2024 03:30 PM OFFICE O/P EST MOD 30 MIN [facility] - IND ICD-10-CM F31.81 Bipolar II disorder NILDA LOYNS B[place]y Encounter Template Text not used by [place] Assessments - Encounter Diagnoses This section includes the primary and secondary diagnoses documented for the Encounter. Date/Time Primary/Secondary Diagnosis Diagnosis Name Provider Source Jul 21, 2024 03:39 PM PRIMARY Bipolar II disorder NILDA LYONS [facility] [facility] Jul 21, 2024 03:39 PM SECONDARY Generalized anxiety [facility] [place] [facility] Jul 21, 2024 03:39 PM SECONDARY Panic disorder [episodic paroxysmal anxiety] [facility] [place] [facility] Plan of Treatment: Future Appointments (+ 6 months) and Future Tests (+/- 45 days) The Plan of Treatment section includes future care activities for the patient from all [place] treatmentfacilities. This section includes future appointments and future orders which are active, pending or scheduled. Future Appointments This section includes appointments that were scheduled to occur 6 months from the date of the Encounter, up to a maximum of 20 appointments. The data comes from all [place] treatment facilities. Appointment Date/Time Appointment Type Appointme nt Facility Name Sep 15, 2024 03:30 PM AMBULATORY - PS[facility]ATRY [facility] Sep 15, 2024 03:30 PM AMBULATORY - [facility]IATRY [facility] [place] [facility] Oct 30, 2024 03:30 PM AMBULATORY - PS[facility]CHIATRY [facility] Oct 30, 2024 03:30 PM AMBULATORY - [facility]ATRY [facility] [place] [facility] December 29, 2024 01:30 PM AMBULATORY - PSYCHIATRY [facility] December 29, 2024 01:30 PM AMBULATORY - PS[facility]CHIATRY [facility] [place] [facility] Active, Pending, and Scheduled Orders This section includes a listing of several types of active, pending, and scheduled orders, including clinic medications orders, diagnostic test orders, procedure orders and consult orders; where the start date of the order is 45 days before the date of the Encounter or 45 days after the date of theEncounter. The data comes from all [place] treatment facilities. Test Date/Time Test Type Test Details Facility Name Jul 21, 2024 12:00 AM Laboratory - Chemi stry Order URINE DRUG SCREEN (STL) URINE YELLOW SP [facility] Advance Directives: All historical and current Section Date Range: From patient's date of to the date document was created. This section includes ALL of a patient's completed or amended [place] Advance and Rescinded Directives. The entries below indicate that a directive exists for the patient, but an actual copy is not included with this document. The data comes from all [place] facilities. Date Advance Directives Provider Source Apr 03, 2014 ADVANCE DIRECTIVE DISCUSSION NATALIA CASTELAN [facility] Encounter Notes: All associated encounter notes This section contains the clinical notes associated to the Encounter. Date/Time Encounter Note(s) Provider Source Jul 21, 2024 02:56 PM MENTAL HEALTH PHYS ICIAN NOTE: LOCAL TITLE: EK-PHYSICIAN MH STANDARD TITLE: MENTAL HEALTH PHYSICIAN NOTE DATE OF NOTE: JUL 21, 2024@14:56 ENTRY DATE: JUL 21, 2024@14:57:44 AUTHOR: NILDA LYONS EXP COSIGNER: URGENCY: STATUS: COMPLETED A telehealth encounter was conducted with CAMILA PEREZ SHAUN ROBERT at [facility] on Jun. Please see TRAKLOK for progress note, clinical reminders and patient orders. /buck/ NILDA LYONS MD PSYCHIATRIST Signed: 07/21/2024 15:39 NILDA LYONS [facility]
--- OUTSIDE RECORDS SUMMARY | 2024-11-24 12:06 | XMS_ITS | Encounter Summary ---
Author Name Department of [place] Address [address] [place] [address] Care Team Providers Care Weed Control Inspector Name Role Phone TASNEEM CARVAJAL Primary Care [...] ION (PPO) [facility] ERS Jan 28, 2023 [id number] [phone] CAMILA PEREZ PATIENT ANTHEM BCBS [place] PREFERRED PROVIDER ORGANIZAT ION (PPO) [facility]INT ERS Jan 28, 2023 [id number] [phone] CAMILA PEREZ PATIENT ANTHE[place] PREFERRED PROVIDER ORGANIZAT ION (PPO) ILLIN OIS [facility] PAINT Jan 28, 2023 [id number] [phone] [place] CAMILA PATIENT [place] PREFERRED PROVID[place] ORGANIZ[place] Jan 28, 2023 [id number] [phone] CAMILA PEREZ PATIENT [facility]-ARGUS PRESCRIPT ION RX PLAN Jan 28, 2023 ISP [id number] [phone] CAMILA PEREZ PATIENT Selected Encounter This section includes the information on record at [place] for the Encounter. Date/Time Encounter Type Encounter Description Reason Provider Source Oct 30, 2024 03:30 PM Outpatient Encounter ADMIN PAT ACTIVTIES (MASNONCT) GARTH LYONS Encounter Template Text not used by [place] Plan of Treatment: Future Appointments (+ 6 months) and Future Tests (+/- 45 days) The Plan of Treatment section includes future care activities for the patient from all [place] treatmentfacilities. This section includes future appointments and future orders which are active, pending or scheduled. Future Appointments This section includes appointments that were scheduled to occur 6 months from the date of the Encounter, up to a maximum of 20 appointments. The data comes from all [place] treatment facilities. Appointment Date/Time Appointment Type Appointme nt Facility Name December 29, 2024 01:30 PM AMBULATORY - PSYCHIATRY [facility] December 29, 2024 01:30 PM AMBULATORY - PSYCHIATRY [facility] [place] [facility] Social History: Smoking Status (Most current) and Tobacco Use (All prior to encounter date) This section includes the most current, and the historical, smoking and tobacco- related health factors from the [place] facility where the Encounter took place. Current Smoking Status This section includes the most current smoking, or tobacco-related health factor, from the [place] facility where the Encounter took place. Date/Time Current Smoking Status Comment Martina guerrier Oct 21, 2018 09:17 AM VA-TOBACCO NEVER USED [facility] Tobacco Use History This section includes a history of the smoking, or tobacco-related health factors, that were collected on or before the date of the Encounter. The data comes from the [place] facility where the Encounter took place. Date/Time Smoking Status/Tobacco Use Comment José Miguel acjeaneth Mar 19, 2017 09:05 AM QUIT TOBACCO [...] this document. The data comes from all [place] facilities. Date Advance Directives Provider Source Apr 03, 2014 ADVANCE DIRECTIVE DISCUSSION NATALIA CASTELAN [facility] Encounter Notes: All associated encounter notes This section contains the clinical notes associated to the Encounter. Date/Time Encounter Note(s) Provider Source Oct 30, 2024 03:17 PM ACCOUNTING OF DISC LOSURES NOTE: LOCAL TITLE: STATE PRESCRIPTION DRUG MONITORING PROGRAM STANDARD TITLE: ACCOUNTING OF DISCLOSURES NOTE DATE OF NOTE: OCT 30, 2024@15:17:48 ENTRY DATE: OCT 30, 2024@15:17:48 AUTHOR: GARTH LYONS EXP COSIGNER: URGENCY: STATUS: COMPLETED This PDMP query was submitted by Garth Lyons. The clinical justification for this PDMP query is to review controlled substances prescribed outside of the [facility], and any additional information that may become available, as an important component of standard clinical care, and in accordance with [facility] policy. Patient information was shared with the PDMP [place]. No prescription(s) for controlled substances outside the [facility] were found in the last 90 days. /buck/ GARTH LYONS Psychiatrist V15 Signed: 10/30/2024 15:27 GARTH LYONS [facility] Oct 30, 2024 02:48 PM PSYCHIATRY NOTE: LOCAL TITLE: PSYCHIATRY ST STANDARD TITLE: PSYCHIATRY NOTE DATE OF NOTE: OCT 30, 2024@14:48 ENTRY DATE: OCT 30, 2024@14:48:07 AUTHOR: GARTH LYONS EXP COSIGNER: URGENCY: STATUS: COMPLETED Encounter was conducted via Telehealth Modality with patient located at work via [facility]. Verbal informed consent was obtained from the at the time of the encounter. Video room locked at time of appointment. Two patient identifiers were utilized for patient identification. Prefers Camila. address: [address] [place] [address] phone: Primary NOK: DWAYNEKANUJHONATAN Relation: UNRELATED FRIEND/ [address] [place] [address] [place], [place] [address] Secondary NOK: WERNER PEREZ Relation: FATHER [address] [place], [place] [address] Length of services provided: 20 minutes (10 [...] lorazepam 0.25mg TID prn for severe anxiety. Started aripiprazole 2.5mg daily for 7 days then if not seeing any benefit or SEs increase to 5mg daily for mood, irritability. Took aripiprazole for first time this morning, had put off due to work and vacation. He will try changing aripiprazole to evening for now and checking back in in a couple months. Enjoyed cruise. Continuing work stressors, anticipating a long shift of working coming up and will be away from home but will get a good commission from this. Going in for mediation with his prior company hoping to resolve ongoing lawsuit. Trial is the next week so either way hoping to resolve soon. Going to try a weight loss program through his chiropractor that involves gut health. REVIEW OF SYSTEMS (ROS): Sleep: intact Energy level: could be better attributes to getting older, no change Appetite: no concerns SI and HI: denied AVH, paranoia, delusions: denied Hypomania or harper: asks about hypomania in the past really just more impulsive, hard to keep things under wraps. 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 ====== ALLERGIES: FERROUS SULFATE MEDICATIONS RECONCILED: Active and Recently Outpatient Medications (excluding Supplies): Active Outpatient Medications Status 1) ARIPIPRAZOLE 5MG TAB TAKE ONE-HALF TABLET BY MOUTH ONCE A ACTIVE DAY FOR 7 DAYS, THEN TAKE ONE TABLET ONCE A DAY Indication: MOOD 2) BUSPIRONE HCL 15MG TAB TAKE TWO TABLETS BY MOUTH TWICE A DAY ACTIVE FOR ANXIETY. DO NOT TAKE WITH GRAPEFRUIT JUICE. 3) FLUOXETINE HCL 20MG CAP TAKE THREE CAPSULES BY MOUTH EVERY ACTIVE MORNING FOR MOOD Indication: MOOD AND ANXIETY 4) LAMOTRIGINE 200MG TAB TAKE TWO TABLETS BY MOUTH EVERY DAY ACTIVE FOR MOOD OR SEIZURES MEDICAL HISTORY: 1) Gastroesophageal Reflux Disease (SNOMED CT 570011957) 2) Obstructive sleep apnea syndrome (SNOMED CT 37545812) 3) History of Fall 4) Meckel diverticulum [...] TSH: No TSH (2YR) EO data found Ox[place]oxo [place]: ____ Depakote: ____ Carbamazepine: No CARBAMAZEPINE EO [...] modify as needed every 12 months -Progress: he just started aripiprazole, will try at night and f/u --Medications: Continue: Buspirone 30mg BID for [...] cannot be filled until UDS results return. Aripiprazole 2.5mg daily for 7 days then if not seeing any benefit or SEs increase to 5mg daily for mood, irritability, try at night due to sedation. Reviewed potential SEs in detail including abnormal movements, dystonia, metabolic changes etc. The patient indicated an informed decision to take medications as described above. The [facility] was informed that if any new side effects or problems arise, the Clinic should be contacted, or can come in for re-evaluation of medication. --Therapy: supportive in sessions --labs/rads/consults: no new today --Return to clinic: scheduled for 2m, sooner prn The agrees to contact the clinic sooner for any new or worsening symptoms. --Discussed plan as written above with who verbalized understanding and agreement with plan. Detailed safety plan was discussed with the patient. -[facility] would ask for help if needed -All ways to access care discussed with patient including how and when to call the mental health clinic, 24 hour emergency room services, [facility] Crisis [facility] (104 and press 1 or Text [phone]) and 911. Patient voiced understanding and agreed to utilize these services when needed. Clinical Reminders: AIMS (Mental Health only): AIMS (Mental Health Instrument) The patient was evaluated for symptoms of tardive dyskinesia using the AIMS. Total score for items 1-7: 0 1. Facial and Oral Movements Muscles of facial expression, e.g., movements of forehead, eyebrows, periorbital area, cheeks. Include frowning, blinking, grimacing of upper face. None 2. Facial and Oral Movements Lips and perioral area, e.g., puckering, pouting, smacking. None 3. Facial and Oral Movements Jaw, e.g., biting, clenching, chewing, mouth opening, lateral movement. None 4. Facial and Oral Movements Tongue. Rate only increase in movement both in and out of mouth, not inability to sustain movement. None 5. Extremity Movements Upper (arms, wrists, hands, fingers). Include movements that are choreic (rapid, objectively purposeless, Irregular, spontaneous) or athetoid (slow, irregular, complex, serpentine). Do not include tremor (repetitive, regular, rhythmic movements). None 6. Extremity Movements Lower (legs, knees, ankles, toes), e.g., lateral knee movement, foot tapping, heel dropping, foot squirming, Inversion and eversion of foot. None 7. Trunk Movements Neck, shoulders, hips, e.g., rocking, twisting, squirming, pelvic gyrations. Include diaphragmatic movements. None 8. Global Judgments Severity of abnormal movements. none, normal 9. Global Judgments Incapacitation due to abnormal movements. none, normal 10. Global Judgments Patient's awareness of abnormal movements. Rate only patient's report no awareness 11. Dental Status Current problems with teeth and/or dentures. no 12. Dental Status Does patient usually wear dentures? costa /buck/ GARTH LYONS Psychiatrist V15 Signed: 10/30/2024 15:41 GARTH LYONS [facility]
--- OUTSIDE RECORDS SUMMARY | 2024-11-24 12:06 | XMS_ITS | Encounter Summary ---
Author Name Department [place] Organization [place] Address [address] [place] [address] Care Team Providers Care Field Sales Consultant Name Role Phone TASNEEM CARVAJAL Primary Care [...] [place] PREFERRED PROVIDER ORGANIZAT ION (PPO) [facility] ERS Jan 28, 2023 [id number] [phone] CAMILA PEREZ PATIENT ANTHEM [place] PREFERRED PROVIDER ORGANIZAT ION (PPO) [facility] E[facility] Jan 28, 2023 [id number] [phone] CAMILA PEREZ PATIENT ANTHEM [place] PREFERRED PROVIDER ORGANIZAT ION (PPO) ILLIN OIS [facility] PAINT Jan 28, 2023 [id number] [phone] NELSON[place] NIXON[place] PATIENT [place] PREFERRED PROVID[place]IZ[place] Jan 28, 2023 [id number] [phone] CAMILA PEREZ PATIENT [facility]-ARGUS PRESCRIPT ION RX PLAN Jan 28, 2023 ISP [id number] [phone] CAMILA PEREZ PATIENT Selected Encounter This section includes the information on record at [place] for the Encounter. Date/Time Encounter Type Encounter Description Reason Provider Source Oct 30, 2024 03:30 PM SYNCH AUDIO-VIDEO EST MOD 30 [facility] - IND ICD-10-CM F31.81 Bipolar II disorder NILDA LYONS [place] Encounter Template Text not used by [place] Assessments - Encounter Diagnoses This section includes the primary and secondary diagnoses documented for the Encounter. Date/Time Primary/Secondary Diagnosis Diagnosis Name Provider Source Oct 30, 2024 03:57 PM PRIMARY Bipolar II disorder NILDA LYONS [facility] [facility] Oct 30, 2024 03:57 PM SECONDARY Generalized anxiety [facility] Oct 30, 2024 03:57 PM SECONDARY Panic disorder [episodic paroxysmal anxiety] [facility] Plan of Treatment: Future Appointments [...] 29, 2024 01:30 PM AMBULATORY - PSYCHIATRY [facility] December 29, 2024 01:30 PM AMBULATORY - PSYCHIATRY [facility] [place] [facility] Advance Directives: All historical and [...] 03, 2014 ADVANCE DIRECTIVE DISCUSSION NATALIA CASTELAN [facility] Encounter Notes: All associated encounter notes This section contains the clinical notes associated to the Encounter. Date/Time Encounter Note(s) Provider Source Oct 30, 2024 02:42 PM MENTAL HEALTH PHYS ICIAN NOTE: LOCAL TITLE: EK-PHYSICIAN MH STANDARD TITLE: MENTAL HEALTH PHYSICIAN NOTE DATE OF NOTE: OCT 30, 2024@14:42 ENTRY DATE: OCT 30, 2024@14:42:55 AUTHOR: NILDA LYONS EXP COSIGNER: URGENCY: STATUS: COMPLETED A telehealth encounter was conducted with CAMILA PEREZ SHAUN ROBERT at [facility] on Oct. Please see [facility]er for progress note, clinical reminders and patient orders. /buck/ NILDA LYONS MD PSYCHIATRIST Signed: 10/30/2024 15:57 NILDA LYONS [facility]
--- OUTSIDE RECORDS SUMMARY | 2024-11-24 12:06 | XMS_ITS | Encounter Summary ---
Author Name Department of [place] Organization [place] Address [address] [facility] [place] [address] Care Team Providers Care Plodding Machine Operator Name Role Phone TASNEEM CARVAJAL [...] BCBS [place] PREFERRED PROVIDER ORGANIZAT ION (PPO) [facility] ERS Jan 28, 2023 [id number] [phone] CAMILA PEREZ PATIENT ANTHEM [place] PREFERRED PROVIDER ORGANIZAT ION (PPO) [facility] ERS Jan 28, 2023 [id number] [phone] CAMILA PEREZ PATIENT [place] PREFERRED PROVIDER ORGANIZAT ION (PPO) ILLIN OIS [facility] PA[facility] Jan 28, 2023 [id number] [phone] NELSONMAY[place] PATIENT [place] PREFERRED [place]IZ[place] Jan 28, 2023 [id number] [phone] CAMILA PEREZ PATIENT [facility] RX-ARGUS PRESCRIPT ION RX PLAN Jan 28, 2023 ISP [id number] [phone] CAMILA PEREZ PATIENT Selected Encounter This section includes the information on record at [place] for the Encounter. Date/Time Encounter Type Encounter Description Reason Provider Source Jun 19, 2024 09:30 AM OFFICE O/P EST MOD 30 MIN [facility] - IND ICD-10-CM F41.1 Generalized anxiety disorder NILDA LYONS [place] Encounter Template Text not used by [place] Assessments - Encounter Diagnoses This section includes the primary and secondary diagnoses documented for the Encounter. Date/Time Primary/Secondary Diagnosis Diagnosis Name Provider Source Jun 19, 2024 09:51 AM PRIMARY Generalized anxiety disorder NILDA LYONS [facility] [place] [facility] Jun 19, 2024 09:51 AM SECONDARY [facility]ipolar [facility] [place] [facility] Jun 19, 2024 09:51 AM SECONDARY Panic disorder [episodic paroxysmal anxiety] [facility] [place] Plan of Treatment: Future Appointments (+ 6 months) and Future Tests (+/- 45 days) The Plan of Treatment section includes future care activities for the patient from all [place] treatmentfacilities. This section includes future appointments and future orders which are active, pending or scheduled. Future Appointments This section includes appointments that were scheduled to occur 6 months from the date of the Encounter, up to a maximum of 20 appointments. The data comes from all [place] treatment facilities. Appointment Date/Time Appointment Type Appointme nt Facility Name Jul 21, 2024 03:30 PM AMBULATORY - PSYCHIATRY [facility] Jul 21, 2024 03:30 PM AMBULATORY - PSYCHIATRY [facility] [place] [facility] Sep 15, 2024 03:30 PM AMBULATORY - PSYCHIATRY [facility] Sep 15, 2024 03:30 PM AMBULATORY - PSYCHIATRY [facility] [place] [facility] Oct 30, 2024 03:30 PM AMBULATORY - PSYCHIATRY [facility] Oct 30, 2024 03:30 PM AMBULATORY - PSYCHIATRY [facility] [place] [facility] Active, Pending, and Scheduled Orders This section includes a listing of several types of active, pending, and scheduled orders, including clinic medications orders, diagnostic test orders, procedure orders and consult orders; where the start date of the order is 45 days before the date of the Encounter or 45 days after the date of theEncounter. The data comes from all [place] treatment facilities. Test Date/Time Test Type Test Details Facility Name Jul 21, 2024 12:00 AM Laboratory - Chemi stry Order URINE DRUG SCREEN (STL) URINE YELLOW SP [facility] Advance Directives: All historical and current Section Date Range: From patient's date of to the date document was created. This section includes ALL of a patient's completed or amended [place] Advance and Rescinded Directives. The entries below indicate that a directive exists for the patient, but an actual copy is not included with this document. The data comes from all [place] facilities. Date Advance Directives Provider Source Apr 03, 2014 ADVANCE DIRECTIVE DISCUSSION NATALIA CASTELAN [facility] Encounter Notes: All associated encounter notes This section contains the clinical notes associated to the Encounter. Date/Time Encounter Note(s) Provider Source Jun 19, 2024 09:18 AM MENTAL HEALTH PHYS ICIAN NOTE: LOCAL TITLE: EK-PHYSICIAN MH STANDARD TITLE: MENTAL HEALTH PHYSICIAN NOTE DATE OF NOTE: JUN 19, 2024@09:18 ENTRY DATE: JUN 19, 2024@09:18:14 AUTHOR: NILDA LYONS EXP COSIGNER: URGENCY: STATUS: COMPLETED A telehealth encounter was conducted with CAMILA PEREZ SHAUN ROBERT at [facility] on May. Please see Vdopia for progress note, clinical reminders and patient orders. /buck/ NILDA LYONS MD PSYCHIATRIST Signed: 06/19/2024 09:55 NILDA LYONS [facility] [place]
--- OUTSIDE RECORDS SUMMARY | 2024-11-24 12:06 | XMS_ITS | Encounter Summary ---
Author Name [facility] Organization [facility] Address [address] [place] [address] Care Team Providers Care Orthopedics Teacher Name Role Phone TASNEEM CARVAJAL Primary Care [...] [place]BS [place] PREFERRED PROVIDER ORGANIZAT ION (PPO) [facility] Jan 28, 2023 [id number] [phone] CAMILA PEREZ PATIENT ANTHEM [place] PREFERRED PROVIDER ORGANIZAT ION (PPO) [facility] ERS Jan 28, 2023 [id number] [phone] CAMILA PEREZ PATIENT ANTHEM [place] PREFERRED PROVIDER ORGANIZAT ION (PPO) [facility] Jan 28, 2023 [id number] [phone] [place] CAMILA PATIENT [place] PREFERRED PROVIDER ORGANIZAT [place]) [place] E[place] Jan 28, 2023 [id number] [phone] CAMILA PEREZ PATIENT [facility] PRESCRIPT ION RX PLAN Jan 28, 2023 ISP [id number] [phone] CAMILA PEREZ PATIENT Selected Encounter This section includes the information on record at ME for the Encounter. Date/Time Encounter Type Encounter Description Reason Pro vider Source Jun 19, 2024 09:30 AM Outpatient Encounter ADMIN PAT ACTIVTIES (MASNONCT) IHE Encounter Template Text not used by ME Plan of Treatment: Future Appointments (+ 6 months) and Future Tests (+/- 45 days) The Plan of Treatment section includes future care activities for the patient from all ME treatmentfacilities. This section includes future appointments and future orders which are active, pending or scheduled. Future Appointments This section includes appointments that were scheduled to occur 6 months from the date of the Encounter, up to a maximum of 20 appointments. The data comes from all [facility]. Appointment Date/Time Appointment Type Appointme nt Facility Name Jul 21, 2024 03:30 PM AMBULATORY - PSYCHIATRY [facility] Jul 21, 2024 03:30 PM AMBULATORY - PS[facility]CHIATRY [facility] [place] [facility] Sep 15, 2024 03:30 PM AMBULATORY [facility]RY [facility] Sep 15, 2024 03:30 PM AMBULATORY - PSYCHIATRY [facility] [place] [facility] Oct 30, 2024 03:30 PM AMBULATORY - PSYCHIATRY [facility] Oct 30, 2024 03:30 PM AMBULATORY - PSYCHIATRY [facility] [place] [facility] Active, Pending, and Scheduled Orders This section includes a listing of several types of active, pending, and scheduled orders, including clinic medications orders, diagnostic test orders, procedure orders and consult orders; where thestart date of the order is 45 days before the date of the Encounter or 45 days after the date of the Encounter. The data comes from all [facility]. Test Date/Time Test Type Test Details Facility Name Jul 21, 2024 12:00 AM Laboratory - Chemi stry Order URINE DRUG SCREEN (STL) URINE YELLOW SP [facility] Social History: Smoking Status (Most current) and Tobacco Use (All prior to encounter date) This section includes the most current, and the historical, smoking and tobacco- related health factors from the ME facility where the Encounter took place. Current Smoking Status This section includes the most current smoking, or tobacco-related health factor, from the [place] facility where the Encounter took place. Date/Time Current Smoking Status Comment Martina guerrier Oct 21, 2018 09:17 AM VA-TOBACCO NEVER USED [facility] Tobacco Use History This section includes a history of the smoking, or tobacco-related health factors, that were collected on or before the date of the Encounter. The data comes from the [place] facility where the Encounter took place. Date/Time Smoking Status/Tobacco Use Comment F acility Mar 19, 2017 09:05 AM QUIT TOBACCO >12 M O & <7 YRS AGO [facility] Mar 19, 2017 09:05 AM TOBACCO MEDS OFFER ED BUT DECLINED [facility] January 21, 2017 01:03 PM LIFETIME NON-USER OF TOBACCO [facility] Feb 14, 2015 01:58 PM QUIT TOBACCO >12 M O & <7 YRS AGO [facility] Feb 04, 2015 07:19 PM QUIT TOBACCO >12 M O & <7 YRS AGO [facility] Apr 02, 2014 03:20 PM QUIT TOBACCO >12 M O & <7 YRS AGO [facility] Dec 22, 2012 02:58 PM QUIT TOBACCO >12 M O & <7 YRS AGO [facility] Dec 22, 2012 02:58 PM QUIT TOBACCO IN TH E LAST 12 MONTHS [facility] Advance Directives: All historical and current Section Date Range: From patient's date of to the date document was created. This section includes ALL of a patient's completed or amended [place] Advance and Rescinded Directives. The entries below indicate that a directive exists for the patient, but an actual copy is not included with this document. The data comes from all [facility]. Date Advance Directives Provider Source Apr 03, 2014 ADVANCE DIRECTIVE DISCUSSION NATALIA CASTELAN [facility] Encounter Notes: All associated encounter notes This section contains the clinical notes associated to the Encounter. Date/Time Encounter Note(s) Provider Source Jun 19, 2024 09:18 AM ACCOUNTING OF DISC LOSURES NOTE: LOCAL TITLE: STATE PRESCRIPTION DRUG MONITORING PROGRAM STANDARD TITLE: ACCOUNTING OF DISCLOSURES NOTE DATE OF NOTE: JUN 19, 2024@09:18:59 ENTRY DATE: JUN 19, 2024@09:18:59 AUTHOR: GARTH LYONS EXP COSIGNER: URGENCY: STATUS: COMPLETED This PDMP query was submitted by Garth Lyons. The clinical justification for this PDMP query is to review controlled substances prescribed outside of the VA, and any additional information that may become available, as an important component of standard clinical care, and in accordance with [facility] policy. Patient information was shared with the PDMP Appriss Elizabeth. No prescription(s) for controlled substances outside the VA were found in the last 90 days. /buck/ GARTH LYONS Psychiatrist V15 Signed: 06/19/2024 09:19 GARTH LYONS [facility] Jun 19, 2024 09:18 AM PSYCHIATRY NOTE: LOCAL TITLE: PSYCHIATRY ST[facility] STANDARD TITLE: PSYCHIATRY NOTE DATE OF NOTE: JUN 19, 2024@09:18 ENTRY DATE: JUN 19, 2024@09:18:23 AUTHOR: GARTH LYONS EXP COSIGNER: URGENCY: STATUS: COMPLETED Encounter was conducted via Telehealth Modality with patient located at work via [facility]. Verbal informed consent was obtained from the at the time of the encounter. Video room locked at time of appointment. Two patient identifiers were utilized for patient identification. Giselle Red. address: [address] [place] [address] phone: Primary NOK: JHONATAN RICE Relation: UNRELATED FRIEND/ [address] [place] [address] [place] [address] Secondary NOK: WERNER PEREZ Relation: FATHER [address] [place], [place] [address] Length of services provided: 30 minutes (20 video, 10 chart review and documentation) Chief complaint: f/u MH med management with diagnoses CHRISTOPHER with panic attacks Bipolar II Disorder Subjective- Today, the patient reports: At last appointment continued buspirone 30mg BID for anxiety, lamotrigine 400mg QHS for mood, fluoxetine 40mg QAM for mood. He never completed UDS so have not renewed lorazepam 0.25mg TID prn for severe anxiety. Reports doing not good. I don't know I've kind of been in a spiral lately feeling worse and worse. a lot of depression and anxiety. mood swings. Feeling down daily multiple times a day and then anxiety feels worse. Denies any changes to his medications. Did go hunting a couple weeks ago and took son for cub service architect trip last weekend, so still staying busy. 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 It's bothering me I can't do the job I'm supposed to or with my family, and it's only going to get worse next week. I won't be able to go hunting, that's how I recharge my battery. has hysterectomy next month so feels needs to stay in job to have insurance. Season lasts through JUL. Feels it is difficult to talk to supervisor pullet farm. Is planning on pursuing potentially a VA disability rating. Discussed how he felt he was not able to get any evaluations in due to command environment and did not have any awareness of services after discharge from . My head is still messed up about how the command treated people, you could never complain. I went on my first cruise recently, I thought I would wake back on the ship. I was afraid to close my eyes. Still has lorazepam I should probably use it, I don't usually. Has a lot of anxiety still around other people. Would most like to see mood, anxiety, and irritability improvement I guess I don't realize it but I go off on people. It doesn't take much at all. 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 Denies SEs. Lamotrigine 400mg QHS for mood. Denies SEs. Fluoxetine increased to 60mg QAM for mood. Denies SEs. Once [...] UDS re-ordered --Return to clinic: scheduled for 1m, sooner prn The [facility] agrees to contact the clinic sooner for any new or worsening symptoms. --Discussed plan as written above with [facility] who verbalized understanding and agreement with plan. Detailed safety plan was discussed with the patient. -[facility] would ask for help if needed -All ways to access care discussed with patient including how and when to call the mental health clinic, 24 hour emergency room services, [facility] Crisis Line (016 and press 1 or Text [phone]) and 911. Patient voiced understanding and agreed to utilize these services when needed. /buck/ GARTH LYONS Psychiatrist V15 Signed: 06/19/2024 09:56 GARTH LYONS [facility]
--- OUTSIDE RECORDS SUMMARY | 2024-11-24 12:06 | XMS_ITS | Continuity of Care Document ---
Author Name [facility] Organization [facility] Care Team Providers Care Binding Stitcher Name Role Phone [facility] Unavailable Unavailable Problems Combined list of problems from Department of Defense and Veterans Affairs facilities. It does not include entries that were removed or entered in error. Problem Status Onset Date Problem Type Date of Resolution Comments Source Acute sinusitis Inactive 3 Condition 04/23/2016 [facility] Bipolar II disorder Active Condition [facility] - Generalised anxiety disorder Active Condition [facility] Gastroesophageal Reflux Disease (SNOMED CT 560273267) Active Condition [facility] History of Fall Active Condition [facility] Meckel diverticulum Active Condition Apr 23, 2016 Entered By: CLEO WYATT Comment: Resected in 2014 [facility] Obstructive sleep apnea syndrome (SNOMED CT 74895866) Active Condition [facility] Panic Active Condition [facility] Plantar fasciitis Active Condition [facility] Routine General Medical Examination at a Health Care Facility * (ICD-9-CM V70.0) Active Condition [facility] Anemia 2nd Acute Blood Loss Inactive Condition 04/23/2016 [facility] Anxiety Inactive Condition 07/29/2017 [facility] Iron deficiency anemia Inactive Condition 04/23/2016 [facility] Portal vein thrombosis Inactive Condition 04/23/2016 [facility] Scalp laceration (SNOMED CT 531433019) Inactive Condition 04/23/2016 [facility] 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 [facility] Thrombosis of mesenteric vein Inactive Condition 04/23/2016 [facility] Diagnosis: ICD-10-CM F31.81 Bipolar II disorder Active Diagnosis [facility] [place] [facility] Diagnosis: ICD-10-CM F41.1 Generalized anxiety disorder Active Diagnosis [facility] Medications Combined list of outpatient medications from Department of Defense and Veterans Affairs facilities.Medications provided include 1) outpatient medications from the last 15 months, and 2) patient-reported medications. Medication Details Route Status Patient Instructions Prescription Expires Prescription Number Last Dispense Date Ordering Provider Order Date Order Qty Source ARIPIPRAZOL E 5MG TAB TAKE ONE-HALF TABLET BY MOUTH ONCE A DAY FOR 7 DAYS, THEN TAKE ONE TABLET ONCE A DAY ORAL ACTIVE 09/16/2025 [id number] MARISA LYONS N 2024 57 [facility] BUSPIRONE HCL 15MG TAB TAKE TWO TABLETS BY MOUTH TWICE A DAY FOR ANXIETY. DO NOT TAKE WITH GRAPEFRU IT JUICE. ORAL ACTIVE 04/01/2025 [id number] 5 MARISA LYONS N 2023 360 [facility] BUSPIRONE HCL 15MG TAB TAKE TWO TABLETS BY MOUTH TWICE A DAY FOR ANXIETY. DO NOT TAKE WITH GRAPEFRU IT JUICE. ORAL DISCONT INUED 06/02/2024 [id number] 4 MARE TRACEY JR 2022 360 [facility] FLUOXETINE HCL 20MG CAP TAKE THREE CAPSULES BY MOUTH EVERY MORNING MOOD AND ANXIETY FOR MOOD ORAL ACTIVE 06/20/2025 [id number] 5 MARISA LYONS N 2023 270 [facility] FLUOXETINE HCL 20MG CAP TAKE TWO CAPSULES BY MOUTH EVERY MORNING FOR MOOD ORAL DISCONT INUED (EDIT) 04/01/2025 [id number] 4 MARISA LYONS N 2023 180 [facility] FLUOXETINE HCL 20MG CAP TAKE TWO CAPSULES BY MOUTH EVERY MORNING FOR MOOD ORAL DISCONT INUED 06/02/2024 [id number] 4 MARE TRACEY JR 2022 180 [facility] LAMOTRIGINE 200MG TAB TAKE TWO TABLETS BY MOUTH EVERY DAY FOR MOOD OR SEIZURES ORAL ACTIVE 04/01/2025 [id number] 5 MARISA LYONS N 2023 180 [facility] LAMOTRIGINE 200MG TAB TAKE TWO TABLETS BY MOUTH EVERY DAY FOR MOOD OR SEIZURES ORAL DISCONT INUED 06/02/2024 [id number] 4 MARE TRACEY JR 2022 180 [facility] LORAZEPAM 0.5MG TAB TAKE ONE-HALF TABLET BY MOUTH THREE TIMES A DAY NEEDED ORAL 12/03/2023 [id number] 4 MARE TRACEY JR 2022 45 [facility] Allergies, Adverse Reactions, Alerts Combined list of allergies from Department of Defense and Veterans Affairs facilities. It does not include entries that were removed or entered in error. Substance Category Reaction Severity Reaction type Status Date Reported Comments Source FERROUS SULFATE Propensity to adverse reactions to drug (finding) Constipati on, Stomach cramps, Abdominal discomfort , Nausea MILD active 4 [facility] Immunizations Combined list of available immunizations from the Department of Defense and Veterans Affairs facilities. Immunization Series Date Given Administered By Site Reaction Lot Number CVX Code Drug Meat Butcher Status Comments Source COVID-19 ([employer] [employer]), MRNA, LNP-S, PF, 30 MCG/0.3 ML DOSE, ROEL-SUCROSE (AGES 12+ YEARS) 3 2021 217 complet ed PFR; [id number]; 2 [facility] COVID-19 ([employer]), MRNA, LNP-S, PF, 30 MCG/0.3 ML DOSE 2 2020 208 complet ed PFR; [id number]; 1 [facility] COVID-19 ([employer]), MRNA, LNP-S, PF, 30 MCG/0.3 ML DOSE 1 2020 208 complet ed PFR; [id number]; 1 [facility] TDAP 2016 115 complet ed Right Deltoid [facility] TD(ADULT) UNSPECIFIED FORMULATION 2014 139 complet ed [facility] TD(ADULT) UNSPECIFIED FORMULATION 2004 139 complet ed TC [facility] Encounters Combined list of: 1) Encounters from Department of [facility] Affairs facilities going backup to the last 18 months, not all VA inpatient encounters are included; 2) Encounters from the Department of [facility] facilities going backup to 280 months. Location Location Details Encounter Type Encounter Number Reason For Visit Attending Provider ADM Date DC Date Status Disposition Source [facility] OFFICE O/P EST MOD 30-39 MIN [id number] Diagnos is: ICD-10- CM F41.1 General ized anxiety disorde MALIK Clifford JR 06/02 [facility] En[facility] [id number] MALIK TRACEY JR 09/01 [facility] Outpatient Encounter [id number] SHAYNE JACKSON L 09/01 [facility] Outpatient Encounter [id number] 09/01 [facility] Outpatient Encounter [id number] 11/15 [facility] Outpatient Encounter [id number] 01/05 [facility] Outpatient Encounter [id number] 02/28 [facility] Outpatient Encounter [id number] 03/01 [facility] [place] [facility] OFFICE O/P NEW MOD 45 MIN [id number] Diagnos is: ICD-10- CM F41.1 General ized anxiety disorde r ELOYMARK IEL 03/31 [facility] [place] [facility] Outpatient Encounter [id number] ELOY,MARK IEL N 03/31 [facility] [place] [facility] OFFICE O/P EST MOD 30 MIN [id number] Diagnos is: ICD-10- CM F41.1 General ized anxiety disorde r ELOYMARK IEL 06/19 [facility] [place] [facility] Outpatient Encounter [id number] 06/19 [facility] [place] [facility] OFFICE O/P EST MOD 30 MIN [id number] Diagnos is: ICD-10- CM F31.81 Bipolar II disorde r MARK LYONS IEL 07/21 [facility] [place] [facility] Outpatient Encounter [id number] 07/21 [facility] [place] [facility] SYNCH AUDIO-VIDE O EST MOD 30 [id number] Diagnos is: ICD-10- CM F31.81 Bipolar II disorde r MARK LYONS IEL 09/15 [facility] Outpatient Encounter [id number] 09/15 [facility] [place] [facility] SYNCH AUDIO-VIDE O EST MOD 30 [id number] Diagnos is: ICD-10- CM F31.81 Bipolar II disorde r MARK LYONS IEL 10/30 [facility] [place] [facility] Outpatient Encounter [id number] MARK LYONS IEL N 10/30 [facility] Social History Combined list of available smoking, tobacco, and other social history from Department of Defense and [facility] Affairs facilities. Social History Type Response Date Comment Sourc e Tobacco smoking status [facility]-TOBACCO NEVER USED 10/21/2018 [facility] History of tobacco use QUIT TOBACCO >12 MO and <7 YRS AGO 03/19/2017 [facility] History of tobacco use LIFETIME NON-USER OF TOBACCO 01/21/2017 [facility] History of tobacco use LIFETIME NON-USER OF TOBACCO 02/11/2016 [facility] History of tobacco use QUIT TOBACCO >12 MO and <7 YRS AGO 02/14/2015 [facility] History of tobacco use QUIT TOBACCO >12 MO and <7 YRS AGO 02/04/2015 [facility] History of tobacco use QUIT TOBACCO >12 MO and <7 YRS AGO 04/02/2014 [facility] History of tobacco use QUIT TOBACCO IN T HE LAST 12 MONTHS 12/22/2012 [facility] History of tobacco use V7-TOBACCO QUIT DATE 05/10/2012 [facility] History of tobacco use V7-QUIT TOBACCO U SE <12 MONTHS 05/10/2012 [facility] Plan of Care List of future care activities from [facility] facilities. Additional future care activities may be listed in the Assessment and Plan section. Date/Time Care Activity Care Activity Detail Facili ty 12/29/2024 AMBULATORY - PSYCHIATRY AMBULATORY - PSYC HIATRY [facility] Advance Directives List of completed, amended, or rescinded Advance Directives on record at [facility] facilities. An actual copy of the Directive is not included. Date Advance Directive Provider Source 04/03/2014 ADVANCE DIRECTIVE DISCUSSION NATALIA CASTELAN [facility]
--- OUTSIDE RECORDS SUMMARY | 2024-11-24 12:06 | XMS_ITS | Clinical Summary ---
Author Organization [facility] Address [address] [place] [address] Care Team Providers Care Electronics Production Supervisor Name Role Phone Lisa Vargas MD Primary Care Provider Social History Tobacco Use Types Packs/Day Years Used Date Smoking Tobacco: Never Assessed Sex and Gender Information Value Date Recorded Sex Assigned at Not on file Legal Sex Male 8:11 PM CDT Gender Identity Not on file Sexual Orientation Not on file Plan of Treatment Health Maintenance Due Date Last Done Comments Annual Physical 1987 Hepatitis C 2002 DTaP, Tdap and Td Vaccines ( 1 - Tdap) 2003 Hepatitis B Vaccines (1 of 3 - 19+ 3-dose series) 2003 COVID-19 Vaccine (2023-2 5 season) 2024 Influenza Adult (#1) 2024 06/21/2020, 10/27/2019 HPV Vaccines Aged Out No longer eligi ble based on patient's age to complete this topic Meningococcal B Vaccine Aged Out No l onger eligible based on patient's age to complete this topic Meningococcal Vaccine Aged Out No jocelin jackie eligible based on patient's age to complete this topic Pneumococcal Vaccine: Pediatrics (0 to 5 Years) and At-Risk Patients (6 to 64 Years) Aged Out No longer eligible b ased on patient's age to complete this topic RSV Immunizations Under 20 Months Aged Out No longer eligible b ased on patient's age to complete this topic Care Teams Electronics Production Supervisor Relationship Specialty Start Date End Date Lisa Vargas MD [address] [place] [address] PCP - General FAMILY PRACTICE 08/26/22
[2024-11-24 12:19] LABS: Estimated Glomerular Filt Rate > 60
== END 2024-11-24 11:02 | disposition home or self-care (01) ==
PROVIDERS: PCP Family Medicine; Visit Provider Family Medicine
DX: R51.9 Headache, unspecified (principal); R22.0 Localized swelling, mass and lump, head; R68.84 Jaw pain
CPT/HCPCS: 70487; Q9967

== ENCOUNTER 2025-02-02 12:31 | Outpatient (CLI) | payer BC, SELFPAY ==
--- NOTE | ~2025-02-02 | CT_ITS ---
CT of the Abdomen and Pelvis: Indication: Right lower quadrant mass Technique: 2.5 mm axial scans were obtained through the abdomen and pelvis following intravenous adm inistration of 100 cc of Omnipaque 350. Dose reduction technique was used on this scan by utilizing a utomated exposure control and iterative reconstruction technique. The dose-length product (DLP) was 1 128.14 mGy-cm. Findings: Scans through the lung bases are unremarkable. The liver, spleen, pancreas, gallbladder, adrenals and kidneys are within normal limits. No evidence of aortic aneurysm. No lymphadenopathy. No bowel obstruction or bowel wall thickening. There is no evidence to suggest acute appendicitis. Images through the pelvis were performed. Urinary bladder unremarkable. No pelvic mass seen. No ascit es. Impression: No significant abnormalities seen. Reviewed, dictated and finalized at [facility]. Impression: No significant abnormalities seen.
== END 2025-02-02 12:32 | disposition home or self-care (01) ==
LOC: MICIMG 12:32
PROVIDERS: PCP Family Medicine; Visit Provider Nurse Practitioner Family
DX: R19.03 Right lower quadrant abdominal swelling, mass and lump (principal)
CPT/HCPCS: 74177; Q9967

== ENCOUNTER 2025-02-15 13:17 | Outpatient (CLI) | payer BC, SELFPAY ==
--- NOTE | ~2025-02-15 | US_ITS ---
EXAM: Focused ultrasound examination of the soft tissues of the anterior abdominal wall HISTORY: Right-sided ABD mass, ABD wall lump TECHNIQUE: Sonographic evaluation of the soft tissues of the anterior abdominal wall were performed a ssessing grayscale appearance and color Doppler flow. COMPARISON: Reference is made to a CT examination of the abdomen and pelvis dated 02/02/2025. FINDINGS: Within the area of palpable concern (in the supraumbilical abdomen, to the right of midline) is a fas cial defect measuring 10.7 mm, through which intra-abdominal fat herniates through. Sonographic evaluation of the remainder of the soft tissues of the anterior abdominal wall demonstrat e benign fibrofatty and fibromuscular elements without a cystic or solid lesion of concern. IMPRESSION: Supraumbilical fat-containing hernia, to the right of midline, corresponding to recent CT examination performed 2 weeks earlier. Reviewed, dictated and finalized at location [facility].
== END 2025-02-15 13:18 | disposition home or self-care (01) ==
LOC: MICIMG 13:18
PROVIDERS: PCP Family Medicine; Visit Provider Nurse Practitioner Family
DX: K43.9 Ventral hernia without obstruction or gangrene (principal)
CPT/HCPCS: 76705